=== PATIENT | male | born 1980 | race Hispanic/Latino ===

== ENCOUNTER 2018-05-19 23:08 | Emergency (ER) | payer OTHER ==
[2018-05-20 01:24] LABS: Basophils # (Auto) 0.1 K/mm3 (0.0-0.1); Basophils % (Auto) 0.4 % (0.0-1.8); Eosinophils % (Auto) 0.1 % (0.0-4.3); Hemoglobin 15.4 gm/dl (11.8-15.2); Lymphocytes # (Auto) 0.7 K/mm3 (1.2-5.4); Lymphocytes % (Auto) 5.2 % (13.4-35.0); Mean Corpuscular HGB Conc 33 % (32-34); Mean Corpuscular Hemoglobin 27 pg (28-32); Mean Corpuscular Volume 84 fl (84-94); Platelet Count 271 K/mm3 (140-440); Red Blood Count 5.63 M/mm3 (3.65-5.03); Red Cell Distribution Width 15.1 % (13.2-15.2)
[2018-05-20 02:22] LABS: BUN/Creatinine Ratio 6; Blood Urea Nitrogen 5 mg/dL (9-20)
[2018-05-20 02:23] LABS: Calcium 9.6 mg/dL (8.4-10.2); Hemolysis Index 9
[2018-05-20] MEDS ORDERED: NACL 0.9% 1000 ML 1,000 ML IV ONE (03:08)
[2018-05-20 04:53] VITALS: BP 141/90
--- NOTE | 2018-05-20 04:58 | Emergency Department Report ---
HPI - General Chief Complaint: Dizziness Time Seen by Provider: 05/20/18 03:01 - HPI HPI: 38-year-old male presents to the emergency department via EMS from work after he began having some full body tingling, dizziness and cramping of his muscles. 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 EMS was called and the patient received a liter of IV fluid in route and says that he began feeling much better as soon as he started getting IV fluid resuscitation. Patient denies any past medical history. He denies any tobacco, or illicit drug use. The patient does admit to drinking alcohol the night before and then going into work which is a strenuous job. He does not have a primary care physician. No recent travel or sick contacts at home. He denies any chest pain, shortness of breath, headache, vision change, slurred speech or any other neurological deficits. ED Past Medical Hx - Past Medical History Previous Medical History?: No - Surgical History Past Surgical History?: No - Social History Smoking Status: Never Smoker Substance Use Type: None ED Review of Systems ROS: Stated complaint: DEHYDRATION/CRAMPING/DIZZINESS Other details as noted in HPI Comment: All other systems reviewed and negative Constitutional: denies: chills, fever Eyes: denies: eye pain, eye discharge, vision change ENT: denies: ear pain, throat pain Respiratory: denies: cough, shortness of breath, wheezing Cardiovascular: denies: chest pain, palpitations Gastrointestinal: denies: abdominal pain, nausea, diarrhea Genitourinary: denies: urgency, dysuria Musculoskeletal: myalgia, other (muscle cramping) Skin: denies: rash, lesions Neurological: paresthesias, other (dizziness). denies: headache, numbness Physical Exam - Physical Exam Vital Signs: Vital Signs 05/20/18 05/20/18 05/20/18 00:38 03:06 03:08 Temperature 98.6 F 98.7 F Pulse Rate 103 H 109 H Respiratory 16 18 Rate Blood Pressure 125/77 Blood Pressure 158/75 [Left] O2 Sat by Pulse 100 100 99 Oximetry 05/20/18 05/20/18 05/20/18 03:31 04:00 04:31 Temperature Pulse Rate 104 H 109 H 97 H Respiratory 10 L 12 11 L Rate Blood Pressure 140/93 141/90 141/90 Blood Pressure [Left] O2 Sat by Pulse 100 99 Oximetry Physical Exam: GENERAL: The patient is well-developed well-nourished. HENT: Normocephalic. Atraumatic. Patient has moist mucous membranes. EYES: Extraocular motions are intact. Pupils equal reactive to light bilaterally. NECK: Supple. Trachea is midline. CHEST/LUNGS: Clear to auscultation. There is no respiratory distress noted. HEART/CARDIOVASCULAR: Regular. There is mild tachycardia. There is no murmur. ABDOMEN: Abdomen is soft, nontender. Patient has normal bowel sounds. There is no abdominal distention. SKIN: Skin is warm and dry. NEURO: The patient is awake, alert, and oriented. The patient is cooperative. The patient has no focal neurologic deficits. The patient has normal speech. Cranial nerves II through XII grossly intact. No dysmetria. No pronator drift. MUSCULOSKELETAL: There is no tenderness or deformity. There is no limitation range of motion. There is no evidence of acute injury. ED Course Vital Signs 05/20/18 05/20/18 05/20/18 00:38 03:06 03:08 Temperature 98.6 F 98.7 F Pulse Rate 103 H 109 H Respiratory 16 18 Rate Blood Pressure 125/77 Blood Pressure 158/75 [Left] O2 Sat by Pulse 100 100 99 Oximetry 05/20/18 05/20/18 05/20/18 03:31 04:00 04:31 Temperature Pulse Rate 104 H 109 H 97 H Respiratory 10 L 12 11 L Rate Blood Pressure 140/93 141/90 141/90 Blood Pressure [Left] O2 Sat by Pulse 100 99 Oximetry ED Medical Decision Making - Lab Data Result diagrams: 05/20/18 00:54 05/20/18 00:54 - EKG Data -: EKG Interpreted by N[facility] EKG shows normal: sinus rhythm, axis, intervals, QRS complexes, ST-T waves Rate: tachycardia (112 bpm) - EKG Data When compared to previous EKG there are: previous EKG unavailable Interpretation: other (sinus tachycardia) - Medical Decision Making Patient presented from work after overheating, having some dizziness, body cramping and tingling. After receiving IV fluid in route the patient is a feeling improved. There is no focal, motor or sensory deficits and his cranial nerves are intact. Patient's labs are mostly unremarkable or these do not show any etiology of the patient's symptoms. There is a mild leukocytosis is most likely reactive at 14,000. There are no significant electrolyte abnormalities, and there is no renal insufficiency, glucose abnormalities. EKG does not show any signs of ST elevation LA, ischemia or dysrhythmia. Patient was given another liter of IV fluid resuscitation and upon reevaluation his tachycardia has resolved. The patient says he is feeling "great" and asking for discharge home. He will increase his oral rehydration. He has been instructed to follow up with a primary care physician but to return to the ER with any worsening of his symptoms or any acute distress. - Differential Diagnosis dehydration, electrolyte abnormalities, dysrhythmia Critical Care Time: No Critical care attestation.: If time is entered above; I have spent that time in minutes in the direct care of this critically ill patient, excluding procedure time. ED Disposition Clinical Impression: Dehydration, Tingling, Dizziness Disposition: DC-01 TO HOME OR SELFCARE Is pt being admited?: No Condition: Stable Instructions: Dehydration (ED), Paresthesia (ED), Lightheadedness (ED), Dizziness (ED) Additional Instructions: Increase your oral rehydration. Follow up with a primary care physician in the next few days. Return to the emergency Department with any worsening of your symptoms or any acute distress. Referrals: PRIMARY CAREMD [Primary Care Provider] - 2-3 Days FEDERICO ROBLEDO JR, MD [Staff Physician] - 2-3 Days [facility] [Outside] - 2-3 Days Forms: Work/School Release Form(ED) Time of Disposition: 04:58
== END 2018-05-20 05:09 | disposition home or self-care (01) ==
LOC: ED 23:08
DX: E86.0 Dehydration (principal); R20.2 Paresthesia of skin
CPT/HCPCS: 36415; 80048; 85025; 93005; 93010; 96360; 99283; J7030

== ENCOUNTER 2018-06-11 18:43 | Observation (INO) | payer OTHER ==
[2018-06-11 19:08] LABS: Basophils # (Auto) 0.1 K/mm3 (0.0-0.1); Basophils % (Auto) 0.6 % (0.0-1.8); Eosinophils # (Auto) 0.1 K/mm3 (0.0-0.4); Eosinophils % (Auto) 1.5 % (0.0-4.3); Hematocrit 45.4 % (35.5-45.6); Hemoglobin 15.3 gm/dl (11.8-15.2); Lymphocytes # (Auto) 2.1 K/mm3 (1.2-5.4); Lymphocytes % (Auto) 24.1 % (13.4-35.0); Mean Corpuscular HGB Conc 34 % (32-34); Mean Corpuscular Hemoglobin 28 pg (28-32); Mean Corpuscular Volume 83 fl (84-94); Monocytes # (Auto) 0.6 K/mm3 (0.0-0.8); Platelet Count 274 K/mm3 (140-440); Red Blood Count 5.46 M/mm3 (3.65-5.03); Red Cell Distribution Width 14.4 % (13.2-15.2)
[2018-06-11 19:22] LABS: BUN/Creatinine Ratio 11; Blood Urea Nitrogen 9 mg/dL (9-20); Calcium 9.7 mg/dL (8.4-10.2); Hemolysis Index 7
--- NOTE | 2018-06-11 22:53 | Emergency Department Report ---
ED Palpitations HPI - General Chief Complaint: Arrhythmia/Palpitations Stated Complaint: POSS IRREG HEARTBEAT Time Seen by Provider: 06/11/18 22:52 Source: patient Mode of arrival: Ambulatory Limitations: No Limitations - History of Present Illness Initial Comments: Patient c/o heart palpitations. Complaint: palpitations, irregular heart beat -: Gradual Context: occured during rest Associated Symptoms: shortness of breath - Related Data Allergies Allergy/AdvReac Type Severity Reaction Status Date / Time No Known Allergies Allergy Unverified 05/20/18 00:46 ED Review of Systems ROS: Stated complaint: POSS IRREG HEARTBEAT Other details as noted in HPI Comment: All other systems reviewed and negative Constitutional: denies: chills, fever Eyes: denies: eye pain ENT: denies: ear pain Respiratory: shortness of breath. denies: cough, orthopnea, SOB with exertion Cardiovascular: palpitations. denies: chest pain, orthopnea Endocrine: no symptoms reported Gastrointestinal: denies: abdominal pain, nausea, vomiting, diarrhea Genitourinary: denies: urgency, dysuria Musculoskeletal: denies: back pain Skin: denies: rash, lesions Neurological: denies: headache, weakness, numbness, paresthesias, confusion Psychiatric: denies: anxiety, depression Hematological/Lymphatic: denies: easy bleeding, easy bruising ED Past Medical Hx - Past Medical History Previous Medical History?: No - Surgical History Past Surgical History?: No - Social History Smoking Status: Never Smoker Substance Use Type: Alcohol ED Physical Exam - General Limitations: No Limitations General appearance: alert, in no apparent distress - Head Head exam: Present: atraumatic, normocephalic, normal inspection - Eye Eye exam: Present: normal appearance, PERRL, EOMI Pupils: Present: normal accommodation - ENT ENT exam: Present: normal exam, normal orophraynx, mucous membranes moist - Neck Neck exam: Present: normal inspection, full ROM. Absent: tenderness - Respiratory Respiratory exam: Present: normal lung sounds bilaterally. Absent: respiratory distress, wheezes, rales, rhonchi, stridor - Cardiovascular Cardiovascular Exam: Present: normal rhythm, tachycardia, normal heart sounds - GI/Abdominal GI/Abdominal exam: Present: soft, normal bowel sounds. Absent: distended, tenderness, guarding, rebound, rigid - Extremities Exam Extremities exam: Present: normal inspection, full ROM, normal capillary refill - Back Exam Back exam: Present: normal inspection, full ROM. Absent: tenderness - Neurological Exam Neurological exam: Present: alert, oriented X3, CN II-XII intact - Psychiatric Psychiatric exam: Present: normal affect, normal mood - Skin Skin exam: Present: warm, dry, intact, normal color. Absent: rash ED Course Vital Signs 06/11/18 06/11/18 06/11/18 18:51 22:28 22:31 Temperature 98.9 F Pulse Rate 125 H 107 H 95 H Respiratory 20 13 14 Rate Blood Pressure 157/86 147/77 O2 Sat by Pulse 100 99 Oximetry 06/11/18 06/11/18 06/11/18 23:00 23:03 23:30 Temperature Pulse Rate 106 H 102 H 102 H Respiratory 13 10 L 13 Rate Blood Pressure 133/78 133/78 137/80 O2 Sat by Pulse 100 100 Oximetry 06/11/18 06/12/18 23:34 01:21 Temperature Pulse Rate Respiratory 20 Rate Blood Pressure O2 Sat by Pulse 98 96 Oximetry - Reevaluation(s) Reevaluation #1: 06/12/18 02:08 On re-evaluation patient is still Tachycardic with a HR 124. ED Medical Decision Making - Lab Data Result diagrams: 06/11/18 18:57 06/11/18 18:57 Lab Results 06/11/18 06/11/18 06/11/18 Range/Units 18:57 18:57 21:33 WBC 8.6 (4.5-11.0) K/mm3 RBC 5.46 H (3.65-5.03) M/mm3 Hgb 15.3 H (11.8-15.2) gm/dl Hct 45.4 (35.5-45.6) % MCV 83 L (84-94) fl MCH 28 (28-32) pg MCHC 34 (32-34) % RDW 14.4 (13.2-15.2) % Plt Count 274 (140-440) K/mm3 Lymph % (Auto) 24.1 (13.4-35.0) % [place] % (Auto) 7.0 (0.0-7.3) % Eos % (Auto) 1.5 (0.0-4.3) % Baso % (Auto) 0.6 (0.0-1.8) % Lymph # 2.1 (1.2-5.4) K/mm3 [place] # 0.6 (0.0-0.8) K/mm3 Eos # 0.1 (0.0-0.4) K/mm3 Baso # 0.1 (0.0-0.1) K/mm3 Seg Neutrophils % 66.8 (40.0-70.0) % Seg Neutrophils # 5.7 (1.8-7.7) K/mm3 PT (12.2-14.9) Sec. INR (0.87-1.13) APTT (24.2-36.6) Sec. Sodium 139 (137-145) mmol/L Potassium 4.2 (3.6-5.0) mmol/L Chloride 100.6 (98-107) mmol/L Carbon Dioxide 27 (22-30) mmol/L Anion Gap 16 mmol/L BUN 9 (9-20) mg/dL Creatinine 0.8 (0.8-1.5) mg/dL Estimated GFR > 60 ml/min BUN/Creatinine Ratio 11 % Glucose 111 H (75-100) mg/dL Calcium 9.7 (8.4-10.2) mg/dL Troponin T < 0.010 < 0.010 (0.00-0.029) ng/mL TSH (0.270-4.200) mlU/mL Urine Color (Yellow) Urine Turbidity (Clear) Urine pH (5.0-7.0) Ur Specific [place] (1.003-1.030) Urine Protein (Negative) mg/dL Urine Glucose (UA) (Negative) mg/dL Urine Ketones (Negative) mg/dL Urine Blood (Negative) Urine Nitrite (Negative) Urine Bilirubin (Negative) Urine Urobilinogen (<2.0) mg/dL Ur Leukocyte Esterase (Negative) Urine WBC (Auto) (0.0-6.0) /HPF Urine RBC (Auto) (0.0-6.0) /HPF Urine Opiates Screen Urine Methadone Screen Ur Barbiturates Screen Ur Phencyclidine Scrn Ur Amphetamines Screen U Benzodiazepines Scrn Urine Cocaine Screen U Marijuana (THC) Screen Drugs of Abuse Note 06/11/18 06/11/18 06/11/18 Range/Units 23:05 23:05 23:34 WBC (4.5-11.0) K/mm3 RBC (3.65-5.03) M/mm3 Hgb (11.8-15.2) gm/dl Hct (35.5-45.6) % MCV (84-94) fl MCH (28-32) pg MCHC (32-34) % RDW (13.2-15.2) % Plt Count (140-440) K/mm3 Lymph % (Auto) (13.4-35.0) % [place] % (Auto) (0.0-7.3) % Eos % (Auto) (0.0-4.3) % Baso % (Auto) (0.0-1.8) % Lymph # (1.2-5.4) K/mm3 [place] # (0.0-0.8) K/mm3 Eos # (0.0-0.4) K/mm3 Baso # (0.0-0.1) K/mm3 Seg Neutrophils % (40.0-70.0) % Seg Neutrophils # (1.8-7.7) K/mm3 PT 12.4 (12.2-14.9) Sec. INR 0.88 (0.87-1.13) APTT 28.1 (24.2-36.6) Sec. Sodium (137-145) mmol/L Potassium (3.6-5.0) mmol/L Chloride (98-107) mmol/L Carbon Dioxide (22-30) mmol/L Anion Gap mmol/L BUN (9-20) mg/dL Creatinine (0.8-1.5) mg/dL Estimated GFR ml/min BUN/Creatinine Ratio % Glucose (75-100) mg/dL Calcium (8.4-10.2) mg/dL Troponin T (0.00-0.029) ng/mL TSH 1.340 (0.270-4.200) mlU/mL Urine Color Straw (Yellow) Urine Turbidity Clear (Clear) Urine pH 8.0 H (5.0-7.0) Ur Specific [place] 1.009 (1.003-1.030) Urine Protein <15 mg/dl (Negative) mg/dL Urine Glucose (UA) Neg (Negative) mg/dL Urine Ketones 20 (Negative) mg/dL Urine Blood Neg (Negative) Urine Nitrite Neg (Negative) Urine Bilirubin Neg (Negative) Urine Urobilinogen < 2.0 (<2.0) mg/dL Ur Leukocyte Esterase Neg (Negative) Urine WBC (Auto) 1.0 (0.0-6.0) /HPF Urine RBC (Auto) 1.0 (0.0-6.0) /HPF Urine Opiates Screen Urine Methadone Screen Ur Barbiturates Screen Ur Phencyclidine Scrn Ur Amphetamines Screen U Benzodiazepines Scrn Urine Cocaine Screen U Marijuana (THC) Screen Drugs of Abuse Note 06/11/18 06/12/18 Range/Units 23:34 00:27 WBC (4.5-11.0) K/mm3 RBC (3.65-5.03) M/mm3 Hgb (11.8-15.2) gm/dl Hct (35.5-45.6) % MCV (84-94) fl MCH (28-32) pg MCHC (32-34) % RDW (13.2-15.2) % Plt Count (140-440) K/mm3 Lymph % (Auto) (13.4-35.0) % [place] % (Auto) (0.0-7.3) % Eos % (Auto) (0.0-4.3) % Baso % (Auto) (0.0-1.8) % Lymph # (1.2-5.4) K/mm3 [place] # (0.0-0.8) K/mm3 Eos # (0.0-0.4) K/mm3 Baso # (0.0-0.1) K/mm3 Seg Neutrophils % (40.0-70.0) % Seg Neutrophils # (1.8-7.7) K/mm3 PT (12.2-14.9) Sec. INR (0.87-1.13) APTT (24.2-36.6) Sec. Sodium (137-145) mmol/L Potassium (3.6-5.0) mmol/L Chloride (98-107) mmol/L Carbon Dioxide (22-30) mmol/L Anion Gap mmol/L BUN (9-20) mg/dL Creatinine (0.8-1.5) mg/dL Estimated GFR ml/min BUN/Creatinine Ratio % Glucose (75-100) mg/dL Calcium (8.4-10.2) mg/dL Troponin T < 0.010 (0.00-0.029) ng/mL TSH (0.270-4.200) mlU/mL Urine Color (Yellow) Urine Turbidity (Clear) Urine pH (5.0-7.0) Ur Specific [place] (1.003-1.030) Urine Protein (Negative) mg/dL Urine Glucose (UA) (Negative) mg/dL Urine Ketones (Negative) mg/dL Urine Blood (Negative) Urine Nitrite (Negative) Urine Bilirubin (Negative) Urine Urobilinogen (<2.0) mg/dL Ur Leukocyte Esterase (Negative) Urine WBC (Auto) (0.0-6.0) /HPF Urine RBC (Auto) (0.0-6.0) /HPF Urine Opiates Screen Presumptive negative Urine Methadone Screen Presumptive negative Ur Barbiturates Screen Presumptive negative Ur Phencyclidine Scrn Presumptive negative Ur Amphetamines Screen Presumptive negative U Benzodiazepines Scrn Presumptive negative Urine Cocaine Screen Presumptive negative U Marijuana (THC) Screen Presumptive negative Drugs of Abuse Note Disclamer - EKG Data -: EKG Interpreted by [facility] EKG shows normal: sinus rhythm Rate: tachycardia (117) - EKG Data When compared to previous EKG there are: no significant change 06/12/18 02:03 No STEMI - Radiology Data Radiology results: report reviewed, image reviewed Patients CTA Chest was negative for pulmonary embolism. - Medical Decision Making Patient has been in the emergency room recently with tachycardia. He was discharged home according to him. He returned today with the same problem. Emergency room work up could not determine the reason for the tachycardia. Based on that I will admit the patient to the hospitalist for further evaluation and management. He will need a Cardiology consult. Critical care attestation.: If time is entered above; I have spent that time in minutes in the direct care of this critically ill patient, excluding procedure time. ED Disposition Clinical Impression: Tachycardia, Heart palpitations Disposition: OP ADMIT IP TO THIS HOSP Is pt being admited?: Yes Does the pt Need Aspirin: No Condition: Stable Referrals: PRIMARY CARE, [Primary Care Provider] - 3-5 Days Time of Disposition: 01:30
[2018-06-11] MEDS ORDERED: NACL 0.9% 1000 ML 1,000 ML IV ONE (22:59)
[2018-06-11 23:47] LABS: INR 0.88 (0.87-1.13)
[2018-06-11 23:48] LABS: Partial Thromboplastin Time 28.1 Sec. (24.2-36.6)
[2018-06-11 23:53] LABS: Bilirubin,Urine NEG (Negative); Blood,Urine NEG (Negative); Color,Urine Straw (Yellow); Protein,Urine <15 mg/dL mg/dL (Negative); Urobilinogen,Urine < 2.0 mg/dL (<2.0)
[2018-06-12 00:05] LABS: Amphetamine Screen,Urine PRESUMPTIVE NEGATIVE; Benzodiazepines Screen,Urine PRESUMPTIVE NEGATIVE; Cannabinoid Screen,Urine PRESUMPTIVE NEGATIVE; Cocaine Screen,Urine PRESUMPTIVE NEGATIVE; Methadone Screen,Urine PRESUMPTIVE NEGATIVE; Opiate Screen,Urine PRESUMPTIVE NEGATIVE
--- NOTE | 2018-06-12 00:20 | Cat Scan Report ---
FINAL REPORT EXAM: CT ANGIO CHEST HISTORY: Shortness of breath, Palpitations. TECHNIQUE: A CT angiogram of the chest was obtained following the intravenous injection of 100 cc of Omnipaque 350. Rotational, sagittal, and coronal MIP reconstructions were reviewed. FINDINGS: The lungs are clear. Pleural fluid is not seen. Heart size appears normal. There is no evidence of pericardial effusion. The thoracic aorta is normal in configuration. There is no evidence of dissection. Adenopathy is not seen. There is no evidence of pulmonary embolus. In the upper abdomen the adrenal glands appear normal. The skeletal structures appear well maintained. At the thoracic inlet the thyroid gland appears normal. IMPRESSION: No evidence of pulmonary embolus, aortic dissection, or vascular congestion. No acute process in the chest.
[2018-06-12] MEDS ORDERED: NACL 0.9% 1000 ML 1,000 ML IV ONE (02:03)
--- NOTE | 2018-06-12 02:21 | History and Physical Report ---
History of Present Illness History of present illness: 38-year-old male with no medical problems comes emergency room with complaints of his heart racing that started this morning. Patient has been constant and he denies chest pain, nausea vomiting, shortness of breath or diaphoresis Review of systems Constitutional: no weight loss, chills, fever Ears, eyes, nose, mouth and throat: no nasal congestion, no nasal discharge, no sinus pressure, no vision change, no red eye. Neck: No neck pain or rigidity. Cardiovascular: no chest pain Respiratory: no cough, shortness of breath Gastrointestinal: no abdominal pain hematochezia Genitourinary : no frequency , no hematuria Musculoskeletal: no joint swelling or muscle ache Integumentary: no rash, no pruritis Neurological: no parathesias, no numbness, no focal weakness Endocrine: no cold or heat intolerance, no polyuria or polydipsia Hematologic/Lymphatic: no easy bruising, no easy bleeding, no gland swelling Allergic/Immunologic: no urticaria, no angioedema. PAST MEDICAL HISTORY: None PAST SURGICAL HISTORY: None SOCIAL HISTORY: Drinks 6 beers a day, no drugs, tobacco FAMILY HISTORY: Hypertension Medications and Allergies Allergies Allergy/AdvReac Type Severity Reaction Status Date / Time No Known Allergies Allergy Verified 06/12/18 02:33 Active Meds: Active Medications Sodium Chloride (Nacl 0.9% 1000 Ml) 1,000 mls @ 999 mls/hr IV BOLUS ONE Stop: 06/12/18 03:03 Last Admin: 06/12/18 02:13 Dose: 999 mls/hr Exam - Physical Exam Narrative exam: Gen. appearance: Patient lying in bed, no apparent distress HEENT: Normocephalic, atraumatic, pupils equally round and reactive to light, extraocular movement intact, and no sclericterus,. No JVD or thyromegaly or nodule,neck supple, no carotid bruit ,mucous membranes moist, no exudate or erythema Heart: S1, S2, regular rate and rhythm Lungs: Clear bilaterally, breathing comfortable Abdomen: Positive bowel sounds, non-tender, nondistended, no organomegaly Extremity:no edema cyanosis, clubbing Skin: no rash, dry, warm Neuro: Oriented 3, cranial nerves II-12 intact, speech is fluent, motor and sensory intact - Constitutional Vitals: Temp Pulse Resp BP Pulse Ox 98.9 F 102 H 20 137/80 96 09/27/18 18:51 06/11/18 23:30 06/11/18 23:34 06/11/18 23:30 06/12/18 01:21 Results - Labs CBC & Chem 7: 06/11/18 18:57 06/11/18 18:57 Labs: Abnormal lab results 06/11/18 06/11/18 06/11/18 Range/Units 18:57 18:57 23:34 RBC 5.46 H (3.65-5.03) M/mm3 Hgb 15.3 H (11.8-15.2) gm/dl MCV 83 L (84-94) fl Glucose 111 H (75-100) mg/dL Urine pH 8.0 H (5.0-7.0) - Imaging and Cardiology CT scan - chest: report reviewed Assessment and Plan Assessment Palpitations Plan Admit to medicine Check cardiac enzymes, echo, consult cardiology DVT prophylaxis
[2018-06-12] MEDS ORDERED: TYLENOL PO PRN (04:25)
[2018-06-12] MEDS ORDERED: SODIUM CHLORIDE FLUSH SYRINGE 10 ML IV PRN (04:25)
[2018-06-12] MEDS ORDERED: ZOFRAN IV PRN (04:25)
[2018-06-12] MEDS ORDERED: PERCOCET 5/325 PO PRN (04:25)
[2018-06-12 07:27] LABS: BUN/Creatinine Ratio 9; Blood Urea Nitrogen 6 mg/dL (9-20); Calcium 8.5 mg/dL (8.4-10.2); Hemolysis Index 6
[2018-06-12 07:32] LABS: Creatine Kinase MB 1.4 ng/mL (0.0-4.0)
[2018-06-12 08:05] LABS: Basophils # (Auto) 0.1 K/mm3 (0.0-0.1); Basophils % (Auto) 0.6 % (0.0-1.8); Eosinophils # (Auto) 0.1 K/mm3 (0.0-0.4); Eosinophils % (Auto) 0.7 % (0.0-4.3); Hematocrit 42.7 % (35.5-45.6); Hemoglobin 14.1 gm/dl (11.8-15.2); Lymphocytes # (Auto) 1.4 K/mm3 (1.2-5.4); Lymphocytes % (Auto) 17.3 % (13.4-35.0); Mean Corpuscular HGB Conc 33 % (32-34); Mean Corpuscular Hemoglobin 28 pg (28-32); Mean Corpuscular Volume 84 fl (84-94); Monocytes # (Auto) 0.5 K/mm3 (0.0-0.8); Monocytes % (Auto) 6.5 % (0.0-7.3); Platelet Count 248 K/mm3 (140-440); Red Blood Count 5.08 M/mm3 (3.65-5.03); Red Cell Distribution Width 14.6 % (13.2-15.2)
[2018-06-12] MEDS ORDERED: LOVENOX SUB-Q SCH ×2 (10:00)
[2018-06-12] MEDS ORDERED: SODIUM CHLORIDE FLUSH SYRINGE 10 ML IV SCH (10:00)
--- NOTE | 2018-06-12 10:01 | Consultation ---
History of Present Illness Consult date: 06/12/18 Requesting physician: SCOTT MIRELES Consult reason: tachycardia History of present illness: 38-year-old male with no known significant past medical history. He presented with complaints of chest pain and palpitations for approximately 1 week prior to admission. He states that his symptoms have been occurring intermittently with no clear aggravating or alleviating factors. He describes his chest pain as a mild, nonexertional, nonradiating, midsternal "discomfort" that occurs with the palpitations. He admits to MDMA use on 06/06/2018. Yesterday, he was at work around 5PM when he noted his symptoms begin. His symptoms got progressively worse and thus he decided to seek medical attention. He also admits that he took 2 "energy packets" yesterday prior to the onset of his symptoms. He denies any SOB, n/v, diaphoresis, dizziness or syncope. He does drink alcohol daily - drinks 5-6 beers and 1-2 mixed drinks daily. Past History Past Medical History: No medical history Past Surgical History: No surgical history Social history: alcohol abuse Medications and Allergies Allergies Allergy/AdvReac Type Severity Reaction Status Date / Time No Known Allergies Allergy Verified 06/12/18 02:33 Active Meds: Active Medications Acetaminophen (Tylenol) 650 mg PO Q4H PRN PRN Reason: Pain MILD(1-3)/Fever >100.5/BURKS Enoxaparin Sodium (Lovenox) 40 mg SUB-Q QDAY@1000 SONDRA Ondansetron HCl (Zofran) 4 mg IV Q8H PRN PRN Reason: Nausea And Vomiting Oxycodone/Acetaminophen (Percocet 5/325) 1 tab PO Q6H PRN PRN Reason: Pain, Moderate (4-6) Sodium Chloride (Sodium Chloride Flush Syringe 10 Ml) 10 ml IV BID SONDRA Sodium Chloride (Sodium Chloride Flush Syringe 10 Ml) 10 ml IV PRN PRN PRN Reason: LINE FLUSH Review of Systems Constitutional: no weight loss, no weight gain, no fever, no chills, no sweats Ears, nose, mouth and throat: no ear pain, no nose pain, no sinus pressure, no sinus pain Cardiovascular: chest pain, palpitations, no orthopnea, no rapid/irregular heart beat, no edema, no syncope, no lightheadedness, no shortness of breath, no dyspnea on exertion, no paroxysmal nocturnal dyspnea, no high blood pressure , no leg edema, no decreased exercise tolerance Respiratory: no cough, no shortness of breath, no dyspnea on exertion, no congestion, no wheezing, no pain on inspiration Gastrointestinal: no abdominal pain, no nausea, no vomiting, no diarrhea, no constipation, no change in bowel habits Genitourinary Male: no dysuria, no hematuria, no flank pain, no discharge, no urinary frequency, no urinary hesitancy Musculoskeletal: no neck stiffness, no neck pain Integumentary: no rash, no pruritis, no redness, no sores, no wounds Neurological: no head injury, no paralysis, no weakness, no parathesias, no numbness, no tingling, no seizures, no syncope Psychiatric: no anxiety Endocrine: no cold intolerance, no heat intolerance Hematologic/Lymphatic: no easy bruising, no easy bleeding, no lymphadenopathy Allergic/Immunologic: no urticaria, no wheezing, no persistent infections Physical Examination Vital Signs Temp Pulse Resp BP Pulse Ox 98.9 F 125 H 20 157/86 100 06/11/18 18:51 06/11/18 18:51 06/11/18 18:51 06/11/18 18:51 06/11/18 18:51 General appearance: no acute distress HEENT: Positive: PERRL, Normocephaly, Mucus Membranes Moist Neck: Positive: neck supple, trachea midline Cardiac: Positive: Reg Rate and Rhythm, S1/S2 Lungs: Positive: clear to auscultation Neuro: Positive: Grossly Intact, Cranial Nerve 2-12 Intact Abdomen: Positive: Soft. Negative: Tender Skin: Positive: Clear. Negative: Rash, Wound Musculoskeletal: No Fluid Collection, No Pain, Normal Range of Motion Extremities: Absent: edema Results 06/12/18 06:50 06/12/18 06:50 Cardiac Enzymes 06/12/18 Range/Units 06:50 CK-MB (CK-2) 1.4 (0.0-4.0) ng/mL Coagulation 06/11/18 Range/Units 23:05 PT 12.4 (12.2-14.9) Sec. INR 0.88 (0.87-1.13) APTT 28.1 (24.2-36.6) Sec. CBC 06/11/18 06/12/18 Range/Units 18:57 06:50 WBC 8.6 7.8 (4.5-11.0) K/mm3 RBC 5.46 H 5.08 H (3.65-5.03) M/mm3 Hgb 15.3 H 14.1 (11.8-15.2) gm/dl Hct 45.4 42.7 (35.5-45.6) % Plt Count 274 248 (140-440) K/mm3 Lymph # 2.1 1.4 (1.2-5.4) K/mm3 [place] # 0.6 0.5 (0.0-0.8) K/mm3 Eos # 0.1 0.1 (0.0-0.4) K/mm3 Baso # 0.1 0.1 (0.0-0.1) K/mm3 Comprehensive Metabolic Panel 06/11/18 06/12/18 Range/Units 18:57 06:50 Sodium 139 142 (137-145) mmol/L Potassium 4.2 3.5 L (3.6-5.0) mmol/L Chloride 100.6 105.2 (98-107) mmol/L Carbon Dioxide 27 24 (22-30) mmol/L BUN 9 6 L (9-20) mg/dL Creatinine 0.8 0.7 L (0.8-1.5) mg/dL Glucose 111 H 93 (75-100) mg/dL Calcium 9.7 8.5 (8.4-10.2) mg/dL - Imaging and Cardiology Echo: report reviewed (EF 55-60%, no valvular abnormalities. ) EKG: report reviewed, image reviewed EKG interpretations - Telemetry EKG Rhythm: Sinus Rhythm - EKG Sinus rhythms and dysrhythmias: sinus tachycardia Assessment and Plan Tele reviewed - pt has had one bout of sinus tachycardia with no tachyarrhythmias noted since admission. Echo reviewed - EF 55-60%, no valvular abnormalities. Plan for treadmill stress test this afternoon (pt ate breakfast) to evaluate for ischemia and/or inducible cardiac arrhythmias. The patient has been seen in conjunction with Dr. Langston who agrees with the assessment and plan of care. - Patient Problems (1) Chest pain Current Visit: Yes Status: Acute (2) Heart palpitations Current Visit: Yes Status: Acute (3) ETOHism Current Visit: Yes Status: Chronic (4) Illicit drug use Current Visit: Yes Status: Chronic (5) Caffeine use Current Visit: Yes Status: Acute
[2018-06-12 10:35] LABS: Creatine Kinase MB 1.5 ng/mL (0.0-4.0)
--- NOTE | 2018-06-12 14:58 | Discharge Summary ---
Providers - Providers Date of Admission: 06/12/18 02:21 Attending physician: MALIK SHARPE MD 06/12/18 02:06 Consult to Physician [CONS] Routine Comment: Consulting Provider: ROBERT EATON Physician Instructions: Reason For Exam: Tachycardia Primary care physician: [employer]OR[employer]OCIATE Hospitalization Reason for admission: palpitation caffine induced Condition: Stable Pertinent studies: Stress test negative Hospital course: 38-year-old male with no medical problems comes emergency room with complaints of his heart racing that started this morning. Patient has been constant and he denies chest pain, nausea vomiting, shortness of breath or diaphoresis. Patient was admitted to the floor and cardiology was consulted, did stress test and Echo which were unremarkable. Patient tachycardia and palpitation. patient discharged home with the advice to stop drinking caffeine and energy drinks. Disposition: - TO HOME OR SELFCARE Time spent for discharge: 32 minutes - Discharge Diagnoses (1) Caffeine use Status: Acute (2) Chest pain Status: Acute (3) Heart palpitations Status: Acute (4) Tachycardia Status: Acute Core Measure Documentation - Palliative Care Palliative Care/ Comfort Measures: Not Applicable - Core Measures Any of the following diagnoses?: none Exam - Physical Exam Narrative exam: Not in cardiopulmonary distress. The patient appeared well nourished and normally developed. Vital signs as documented. Head exam is unremarkable. No scleral icterus . Neck is without jugular venous distension, thyromegaly, or carotid bruits. Lungs are clear to auscultation. Cardiac exam reveals regular rate and Rhythm. First and second heart sounds normal. No murmurs, rubs or gallops. Abdominal exam reveals normal bowel sounds, no masses, no organomegaly and no aortic enlargement. Extremities are nonedematous and both femoral and pedal pulses are normal. 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 No focal weakness. - Constitutional Vitals: Temp Pulse Resp BP Pulse Ox 98.0 F 79 20 119/78 99 06/12/18 12:01 06/12/18 13:00 06/12/18 12:01 06/12/18 12:01 06/12/18 12:01 Plan Activity: no restrictions Weight Bearing Status: Full Weight Bearing Diet: other (Avoid caffeine) Additional Instructions: F/u at your PCP PRN Follow up with: JULIAN CHE MD [Primary Care Provider] - 3-5 Days Forms: Work/School Release Form
[2018-06-12 16:38] VITALS: BP 141/85
--- NOTE | 2018-06-13 05:49 | Treadmill Report ---
TREADMILL EXERCISE STRESS TEST REPORT REASON FOR STUDY: Chest pain. STRESS TEST PROTOCOL: The patient completed 9 minutes of a Tony protocol. He attained a peak heart rate of 171 per minute, which is 109% of his age predicted maximum (10.2 METs). No diagnostic ischemic EKG changes. No chest pain. No arrhythmias. The test was terminated due to fatigue. IMPRESSION: Negative stress test. No evidence of stress-induced ischemia. JOB# [id number] AGO/NTS
== END 2018-06-12 17:54 | disposition home or self-care (01) ==
LOC: ED 18:43 → INTOOBSV 06-12 02:21 → 4A 06-12 02:21
PROVIDERS: ADMIT Internal Medicine; ATTEND Internal Medicine
DX: R00.2 Palpitations (principal); R00.0 Tachycardia, unspecified; F10.10 Alcohol abuse, uncomplicated; Z82.49 Family history of ischemic heart disease and other diseases of the circulatory system
CPT/HCPCS: 36415; 71275; 80048; 80307; 81001; 82550; 82553; 84443; 84484; 85025; 85610; 85730; 93005; 93010; 93017; 93306; 96372; 99285; G0378; J1650; J7030; Q9967; 96360; 96361

== ENCOUNTER 2018-10-06 15:54 | Emergency (ER) | payer OTHER ==
[2018-10-06 16:20] VITALS: BP 116/77
--- NOTE | 2018-10-06 17:06 | Emergency Department Report ---
ED Chest Pain HPI - General Chief Complaint: Chest Pain Stated Complaint: CHEST PAIN Time Seen by Provider: 10/06/18 16:49 Source: patient Mode of arrival: Ambulatory Limitations: No Limitations - History of Present Illness Initial Comments: She is a 38-year-old male who comes to the emergency room complaining of chest pain. He states he has a heaviness in his chest. He states that he is afraid he is on a diet. Patient is hyperverbal on exam. He admits to 5 or 6 drinks of liquor per day. Also admits to using mushrooms. He has no HI and no SI. He also endorses shortness of breath. These events occurred today while at work. - Related Data Allergies Allergy/AdvReac Type Severity Reaction Status Date / Time No Known Allergies Allergy Verified 06/12/18 02:33 Heart Score - HEART Score History: Slightly suspicious EKG: Normal Age: < 45 Risk factors: No known risk factors Troponin: < normal limit HEART Score: 0 ED Review of Systems ROS: Stated complaint: CHEST PAIN Other details as noted in HPI Comment: All other systems reviewed and negative Constitutional: denies: chills Eyes: denies: eye pain ENT: denies: ear pain Respiratory: see HPI, shortness of breath. denies: cough Cardiovascular: as per HPI, chest pain. denies: palpitations Endocrine: denies: flushing Gastrointestinal: denies: nausea Genitourinary: denies: urgency Musculoskeletal: denies: back pain Skin: denies: lesions Neurological: denies: headache, numbness Psychiatric: as per HPI, anxiety. denies: depression Hematological/Lymphatic: denies: easy bleeding ED Past Medical Hx - Past Medical History Hx Psychiatric Treatment: Yes (ETOH abuse) Additional medical history: "fast hearbeat", polysubstance abuse - Surgical History Past Surgical History?: No - Social History Smoking Status: Never Smoker Substance Use Type: Alcohol, Other ED Physical Exam - General Limitations: No Limitations General appearance: alert - Head Head exam: Present: atraumatic - Eye Eye exam: Present: normal appearance - ENT ENT exam: Present: mucous membranes moist - Neck Neck exam: Present: normal inspection - Respiratory Respiratory exam: Present: normal lung sounds bilaterally - Cardiovascular Cardiovascular Exam: Present: regular rate - GI/Abdominal GI/Abdominal exam: Present: soft, normal bowel sounds - Rectal Rectal exam: Present: deferred - Extremities Exam Extremities exam: Present: normal inspection - Back Exam Back exam: Present: normal inspection - Neurological Exam Neurological exam: Present: alert, oriented X3, CN II-XII intact, normal gait - Psychiatric Psychiatric exam: Present: agitated, anxious. Absent: normal affect, normal mood, depressed, flat affect, manic, homicidal ideation, suicidal ideation - Skin Skin exam: Present: warm, dry, intact ED Course Vital Signs 10/06/18 16:14 Temperature 98.2 F Pulse Rate 93 H Respiratory 20 Rate Blood Pressure 116/77 O2 Sat by Pulse 100 Oximetry PEBBLES score - Pebbles Score Age > 65: (0) No Aspirin use within the Past 7 Days: (0) No 3 or more CAD Risk Factors: (0) No 2 or more Angina events in past 24 hrs: (0) No Known CAD with more than 50% Stenosis: (0) No Elevated Cardiac Markers: (0) No ST Deviation Greater than 0.5mm: (0) No PEBBLES Score: 0 ED Medical Decision Making - Lab Data Result diagrams: 10/06/18 17:33 10/06/18 17:33 - EKG Data -: EKG Interpreted by Pr EKG shows normal: sinus rhythm Rate: normal - EKG Data When compared to previous EKG there are: no significant change Interpretation: no acute changes - Medical Decision Making labs noted 12 lead noted trop normal last etoh this am discussed substance use with pt. no hi no si does not want help now dc home with family and dc plan of care. VSS. Labs 10/06/18 10/06/18 10/06/18 17:00 17:05 17:33 WBC 6.3 RBC 4.87 Hgb 13.8 Hct 41.3 MCV 85 MCH 28 MCHC 33 RDW 15.3 H Plt Count 297 Sodium Potassium Chloride Carbon Dioxide Anion Gap BUN Creatinine Estimated GFR BUN/Creatinine Ratio Glucose Calcium Total Bilirubin AST ALT Alkaline Phosphatase Troponin T Total Protein Albumin Albumin/Globulin Ratio Urine Color Yellow Urine Turbidity Clear Urine pH 8.0 H Ur Specific [place] 1.008 Urine Protein <15 mg/dl Urine Glucose (UA) Neg Urine Ketones Neg Urine Blood Neg Urine Nitrite Neg Urine Bilirubin Neg Urine Urobilinogen 4.0 Ur Leukocyte Esterase Neg Urine WBC (Auto) 1.0 Urine RBC (Auto) 1.0 Urine Opiates Screen Presumptive negative Urine Methadone Screen Presumptive negative Ur Barbiturates Screen Presumptive negative Ur Phencyclidine Scrn Presumptive negative Ur Amphetamines Screen Presumptive negative U Benzodiazepines Scrn Presumptive negative Urine Cocaine Screen Presumptive negative U Marijuana (THC) Screen Presumptive negative Drugs of Abuse Note Disclamer 10/06/18 17:33 WBC RBC Hgb Hct MCV MCH MCHC RDW Plt Count Sodium 140 Potassium 4.3 Chloride 100.9 Carbon Dioxide 29 Anion Gap 14 BUN 9 Creatinine 0.8 Estimated GFR > 60 BUN/Creatinine Ratio 11 Glucose 110 H Calcium 8.8 Total Bilirubin 0.60 AST 44 H ALT 50 Alkaline Phosphatase 110 Troponin T < 0.010 Total Protein 6.8 Albumin 4.2 Albumin/Globulin Ratio 1.6 Urine Color Urine Turbidity Urine pH Ur Specific [place] Urine Protein Urine Glucose (UA) Urine Ketones Urine Blood Urine Nitrite Urine Bilirubin Urine Urobilinogen Ur Leukocyte Esterase Urine WBC (Auto) Urine RBC (Auto) Urine Opiates Screen Urine Methadone Screen Ur Barbiturates Screen Ur Phencyclidine Scrn Ur Amphetamines Screen U Benzodiazepines Scrn Urine Cocaine Screen U Marijuana (THC) Screen Drugs of Abuse Note Critical care attestation.: If time is entered above; I have spent that time in minutes in the direct care of this critically ill patient, excluding procedure time. ED Disposition Clinical Impression: Non-cardiac chest pain, Illicit drug use, Alcohol abuse Disposition: DC-01 TO HOME OR SELFCARE Is pt being admited?: No Does the pt Need Aspirin: No Condition: Stable Instructions: Abuse of Alcohol (ED), Polysubstance Abuse (ED) Additional Instructions: YOUR LABS ARE NORMAL TODAY I SUSPECT YOUR SYMPTOMS ARE FROM ALCOHOL AND DRUG USE FOLLOW UP WITH SUBSTANCE COUNSELING WE DISCUSSED Referrals: MINDI SAEZ MD [Primary Care Provider] - 3-5 Days Time of Disposition: 18:09
[2018-10-06 17:32] LABS: Amphetamine Screen,Urine PRESUMPTIVE NEGATIVE; Benzodiazepines Screen,Urine PRESUMPTIVE NEGATIVE; Cannabinoid Screen,Urine PRESUMPTIVE NEGATIVE; Cocaine Screen,Urine PRESUMPTIVE NEGATIVE; Methadone Screen,Urine PRESUMPTIVE NEGATIVE; Opiate Screen,Urine PRESUMPTIVE NEGATIVE
[2018-10-06 17:35] LABS: Bilirubin,Urine NEG (Negative); Blood,Urine NEG (Negative); Color,Urine Yellow (Yellow); Protein,Urine <15 mg/dL mg/dL (Negative)
[2018-10-06 17:47] LABS: Hematocrit 41.3 % (35.5-45.6); Hemoglobin 13.8 gm/dl (11.8-15.2); Mean Corpuscular HGB Conc 33 % (32-34); Mean Corpuscular Volume 85 fl (84-94); Platelet Count 297 K/mm3 (140-440); Red Blood Count 4.87 M/mm3 (3.65-5.03); Red Cell Distribution Width 15.3 % (13.2-15.2)
--- NOTE | 2018-10-06 17:54 | XRay Report ---
FINAL REPORT EXAM: XR CHEST ROUTINE 2V HISTORY: CHEST PAIN TECHNIQUE: Two view chest PA and lateral PRIORS: None. FINDINGS: Cardiac and mediastinal contours are unremarkable. No focal pulmonary infiltrate is identified. No pleural fluid collection seen. Pulmonary vasculature is unremarkable. IMPRESSION: Negative two-view chest
[2018-10-06 18:03] LABS: Alanine Aminotransferase 50 units/L (7-56); Albumin 4.2 g/dL (3.9-5); BUN/Creatinine Ratio 11; Blood Urea Nitrogen 9 mg/dL (9-20); Calcium 8.8 mg/dL (8.4-10.2); Hemolysis Index 11
== END 2018-10-06 18:46 | disposition home or self-care (01) ==
LOC: ED 15:54
DX: R07.89 Other chest pain (principal)
CPT/HCPCS: 36415; 71046; 80053; 80307; 81001; 84484; 85027; 93005; 93010

== ENCOUNTER 2018-11-06 16:03 | Emergency (ER) | payer SELFPAY ==
--- NOTE | 2018-11-06 16:18 | Emergency Department Report ---
Chief Complaint: Chest Pain Stated Complaint: CHEST PAIN Time Seen by Provider: 11/06/18 16:13 - HPI History of Present Illness: pcp none co cp; started when he went to work today it comes and goes it is associated with palpitations no sob see EMR pmh anxiety no drugs stopped etoh few weeks ago denies psych hx rx none non adh w med he was given - sounds like propranolol lives w mother works in [employer] abc intact 12 lead noted MSE completed MSE screening note: Focused history and physical exam performed. Due to findings the following was ordered: ED Disposition for MSE Condition: Stable
[2018-11-06 17:24] LABS: Bilirubin,Urine NEG (Negative); Blood,Urine NEG (Negative); Color,Urine Yellow (Yellow); Protein,Urine <15 mg/dL mg/dL (Negative); Urobilinogen,Urine < 2.0 mg/dL (<2.0)
[2018-11-06 17:32] LABS: Basophils % (Auto) 0.6 % (0.0-1.8); Eosinophils # (Auto) 0.1 K/mm3 (0.0-0.4); Eosinophils % (Auto) 1.1 % (0.0-4.3); Hematocrit 44.3 % (35.5-45.6); Hemoglobin 14.9 gm/dl (11.8-15.2); Lymphocytes # (Auto) 1.2 K/mm3 (1.2-5.4); Lymphocytes % (Auto) 15.7 % (13.4-35.0); Mean Corpuscular HGB Conc 34 % (32-34); Mean Corpuscular Volume 82 fl (84-94); Monocytes # (Auto) 0.5 K/mm3 (0.0-0.8); Monocytes % (Auto) 6.9 % (0.0-7.3); Platelet Count 269 K/mm3 (140-440); Red Blood Count 5.43 M/mm3 (3.65-5.03); Red Cell Distribution Width 14.7 % (13.2-15.2)
[2018-11-06 17:41] LABS: Amphetamine Screen,Urine PRESUMPTIVE NEGATIVE; Benzodiazepines Screen,Urine PRESUMPTIVE NEGATIVE; Cannabinoid Screen,Urine PRESUMPTIVE NEGATIVE; Cocaine Screen,Urine PRESUMPTIVE NEGATIVE; Methadone Screen,Urine PRESUMPTIVE NEGATIVE; Opiate Screen,Urine PRESUMPTIVE NEGATIVE
[2018-11-06 18:06] LABS: BUN/Creatinine Ratio 17; Blood Urea Nitrogen 12 mg/dL (9-20); Calcium 9.6 mg/dL (8.4-10.2); Hemolysis Index 20
--- NOTE | 2018-11-06 18:37 | Emergency Department Report ---
ED General Adult HPI - General Chief complaint: Chest Pain Stated complaint: CHEST PAIN Time Seen by Provider: 11/06/18 16:13 Source: patient Mode of arrival: Ambulatory Limitations: No Limitations - History of Present Illness Initial comments: Patient is a 38-year-old male who states he has a squeezing sensation in his chest has been present for the last several weeks to months. Patient is not a very good historian. Patient does have a history of alcohol and polysubstance abuse. The patient states he was at work today and started feeli ng a squeezing sensation and came in to be checked out. Patient denies any nausea vomiting shortness of breath diaphoresis. Patient states it occurs randomly can last from seconds to minutes. Severity scale (0 -10): 4 - Related Data Allergies Allergy/AdvReac Type Severity Reaction Status Date / Time No Known Allergies Allergy Verified 06/12/18 02:33 ED Review of Systems ROS: Stated complaint: CHEST PAIN Other details as noted in HPI Comment: All other systems reviewed and negative ED Past Medical Hx - Past Medical History Previous Medical History?: Yes Hx Psychiatric Treatment: Yes (ETOH abuse) Additional medical history: "fast hearbeat", polysubstance abuse - Surgical History Past Surgical History?: No - Social History Smoking Status: Never Smoker Substance Use Type: Alcohol ED Physical Exam - General Limitations: No Limitations General appearance: alert, in no apparent distress - Head Head exam: Present: atraumatic, normocephalic - Eye Eye exam: Present: normal appearance - ENT ENT exam: Present: mucous membranes moist - Neck Neck exam: Present: normal inspection - Respiratory Respiratory exam: Present: normal lung sounds bilaterally. Absent: respiratory distress, wheezes, rales, rhonchi, chest wall tenderness - Cardiovascular Cardiovascular Exam: Present: regular rate, normal rhythm, normal heart sounds. Absent: systolic murmur, diastolic murmur, rubs, gallop - GI/Abdominal GI/Abdominal exam: Present: soft, normal bowel sounds. Absent: distended, tenderness, guarding - Rectal Rectal exam: Present: deferred - Extremities Exam Extremities exam: Present: normal inspection - Back Exam Back exam: Present: normal inspection - Neurological Exam Neurological exam: Present: alert, oriented X3 - Psychiatric Psychiatric exam: Present: normal affect, normal mood - Skin Skin exam: Present: warm, dry, intact, normal color. Absent: rash ED Course Vital Signs 02/22/19 16:13 Temperature 97.9 F Pulse Rate 101 H Respiratory 19 Rate Blood Pressure 129/89 O2 Sat by Pulse 99 Oximetry ED Medical Decision Making - Lab Data Result diagrams: 11/06/18 17:17 11/06/18 17:17 Labs 11/06/18 11/06/18 11/06/18 16:36 16:36 17:17 WBC 7.4 RBC 5.43 H Hgb 14.9 Hct 44.3 MCV 82 L MCH 28 MCHC 34 RDW 14.7 Plt Count 269 Lymph % (Auto) 15.7 [place] % (Auto) 6.9 Eos % (Auto) 1.1 Baso % (Auto) 0.6 Lymph # 1.2 [place] # 0.5 Eos # 0.1 Baso # 0.0 Seg Neutrophils % 75.7 H Seg Neutrophils # 5.6 Sodium Potassium Chloride Carbon Dioxide Anion Gap BUN Creatinine Estimated GFR BUN/Creatinine Ratio Glucose Calcium Troponin T Urine Color Yellow Urine Turbidity Clear Urine pH 5.0 Ur Specific [place] 1.025 Urine Protein <15 mg/dl Urine Glucose (UA) Neg Urine Ketones Neg Urine Blood Neg Urine Nitrite Neg Urine Bilirubin Neg Urine Urobilinogen < 2.0 Ur Leukocyte Esterase Neg Urine WBC (Auto) 1.0 Urine RBC (Auto) 2.0 Urine Opiates Screen Presumptive negative Urine Methadone Screen Presumptive negative Ur Barbiturates Screen Presumptive negative Ur Phencyclidine Scrn Presumptive negative Ur Amphetamines Screen Presumptive negative U Benzodiazepines Scrn Presumptive negative Urine Cocaine Screen Presumptive negative U Marijuana (THC) Screen Presumptive negative Drugs of Abuse Note Disclamer 11/06/18 17:17 WBC RBC Hgb Hct MCV MCH MCHC RDW Plt Count Lymph % (Auto) [place] % (Auto) Eos % (Auto) Baso % (Auto) Lymph # [place] # Eos # Baso # Seg Neutrophils % Seg Neutrophils # Sodium 142 Potassium 4.5 Chloride 102.8 Carbon Dioxide 28 Anion Gap 16 BUN 12 Creatinine 0.7 L Estimated GFR > 60 BUN/Creatinine Ratio 17 Glucose 91 Calcium 9.6 Troponin T < 0.010 Urine Color Urine Turbidity Urine pH Ur Specific [place] Urine Protein Urine Glucose (UA) Urine Ketones Urine Blood Urine Nitrite Urine Bilirubin Urine Urobilinogen Ur Leukocyte Esterase Urine WBC (Auto) Urine RBC (Auto) Urine Opiates Screen Urine Methadone Screen Ur Barbiturates Screen Ur Phencyclidine Scrn Ur Amphetamines Screen U Benzodiazepines Scrn Urine Cocaine Screen U Marijuana (THC) Screen Drugs of Abuse Note - EKG Data -: EKG Interpreted by Me EKG shows normal: sinus rhythm, axis, intervals, QRS complexes, ST-T waves Rate: normal - EKG Data Interpretation: normal EKG - Radiology Data Chest x-ray shows no acute process - Medical Decision Making Patient's states he's been seen in emergency departments before in the past for the same sensation. Suggested again that the patient follow up with cardiology. Patient's troponin is negative as x-ray is within normal limits EKG shows no acute process. Patient asked for light duty at work stating that he thinks he may just be stressed. Critical care attestation.: If time is entered above; I have spent that time in minutes in the direct care of this critically ill patient, excluding procedure time. ED Disposition Clinical Impression: Atypical chest pain Disposition: DC-01 TO HOME OR SELFCARE Is pt being admited?: No Does the pt Need Aspirin: No Condition: Stable Instructions: Chest Pain (ED) Referrals: RICKY GONZALEZ MD [Staff Physician] - 3-5 Days [place] YARELI BROWN MD [Primary Care Provider] - 3-5 Days Forms: Work/School Release Form(ED) Time of Disposition: 18:37
[2018-11-06 18:50] VITALS: BP 124/72
--- NOTE | 2018-11-06 18:56 | XRay Report ---
FINAL REPORT PROCEDURE: Chest. TECHNIQUE: PA and lateral views. HISTORY: Chest pain. COMPARISON: Chest 10/06/2018. FINDINGS: The heart and mediastinum appear normal. The lungs are clear and well expanded. There are no pleural effusions. The soft tissues are unremarkable. There is a very mild thoracic scoliosis. IMPRESSION: No evidence of acute cardiopulmonary disease.
== END 2018-11-06 18:50 | disposition home or self-care (01) ==
LOC: ED 16:03
DX: R07.89 Other chest pain (principal)
CPT/HCPCS: 36415; 71046; 80048; 80307; 81001; 84484; 85025; 93005; 93010

== ENCOUNTER 2019-03-18 09:08 | Emergency (ER) | payer OTHER ==
[2019-03-18 09:17] VITALS: BP 137/93
[2019-03-18] MEDS ORDERED: ASPIRIN PO ONE (09:17)
--- NOTE | 2019-03-18 09:50 | Emergency Department Report ---
ED Chest Pain HPI - General Chief Complaint: Chest Pain Stated Complaint: CHEST PAIN Time Seen by Provider: 03/18/19 09:31 Source: patient Mode of arrival: Ambulatory Limitations: No Limitations - History of Present Illness Initial Comments: This is a 38-year-old male with a past medical history of GERD and hypertension who presents to the ED complaining of chest pain that has worsened for the past 5-6 months. Patient describes pain as intermittent aching and stabbing pain symptoms in right side and sometimes in her left side. Patient states that she needs sporadic comes and goes intermittently. He requested pain 5 out of 10 in intensity. Patient denies any trauma, injury or fall, fever, shortness of breath Patient states that he has been seen by 2 nutrition assistant has been cleared. MD Complaint: chest pain - Related Data Previous Rx's Medication Instructions Recorded Last Taken Type Naproxen [Naprosyn] 500 mg PO BID #30 tablet 03/18/19 Unknown Rx Allergies Allergy/AdvReac Type Severity Reaction Status Date / Time No Known Allergies Allergy Verified 03/18/19 10:16 Heart Score - HEART Score History: Slightly suspicious EKG: Normal Age: < 45 Risk factors: No known risk factors Troponin: < normal limit HEART Score: 0 ED Review of Systems ROS: Stated complaint: CHEST PAIN Other details as noted in HPI Comment: All other systems reviewed and negative ED Past Medical Hx - Past Medical History Hx Hypertension: Yes Hx GERD: Yes Hx Psychiatric Treatment: Yes (ETOH abuse) Additional medical history: "fast hearbeat", polysubstance abuse - Social History Smoking Status: Never Smoker Substance Use Type: None - Medications Home Medications: Home Medications Medication Instructions Recorded Confirmed Last Taken Type Naproxen [Naprosyn] 500 mg PO BID #30 tablet 03/18/19 Unknown Rx ED Physical Exam - General Limitations: No Limitations General appearance: alert, in no apparent distress - Head Head exam: Present: atraumatic, normocephalic - Eye Eye exam: Present: normal appearance - ENT ENT exam: Present: mucous membranes moist - Neck Neck exam: Present: normal inspection - Respiratory Respiratory exam: Present: normal lung sounds bilaterally. Absent: respiratory distress - Cardiovascular Cardiovascular Exam: Present: regular rate, normal rhythm. Absent: systolic murmur, diastolic murmur, rubs, gallop - GI/Abdominal GI/Abdominal exam: Present: soft, normal bowel sounds - Rectal Rectal exam: Present: deferred - Extremities Exam Extremities exam: Present: normal inspection - Back Exam Back exam: Present: normal inspection - Neurological Exam Neurological exam: Present: alert, oriented X3 - Psychiatric Psychiatric exam: Present: normal affect, normal mood - Skin Skin exam: Present: warm, dry, intact, normal color. Absent: rash ED Course Vital Signs 03/18/19 03/18/19 09:15 12:49 Temperature 98.4 F Pulse Rate 108 H Respiratory 16 18 Rate Blood Pressure 137/93 [Left] O2 Sat by Pulse 99 99 Oximetry AJAY score - Ajay Score Age > 65: (0) No Aspirin use within the Past 7 Days: (0) No 3 or more CAD Risk Factors: (0) No 2 or more Angina events in past 24 hrs: (0) No Known CAD with more than 50% Stenosis: (0) No Elevated Cardiac Markers: (0) No ST Deviation Greater than 0.5mm: (0) No AJAY Score: 0 ED Medical Decision Making - Lab Data Result diagrams: 03/18/19 09:53 03/18/19 09:53 - EKG Data EKG shows normal: sinus rhythm - Radiology Data Radiology results: report reviewed, image reviewed INDICATION / CLINICAL INFORMATION: Chest Pain. COMPARISON: None currently available. FINDINGS: SUPPORT DEVICES: None. HEART / MEDIASTINUM: The heart size and pulmonary vasculature are normal. The aorta is normal in caliber. LUNGS / PLEURA: No significant pulmonary or pleural abnormality. No pneumothorax. ADDITIONAL FINDINGS: No significant additional findings. IMPRESSION: No acute findings. Signer Name: Aquilino Clifford MD Signed: 03/18/2019 9:53 AM Workstation Name: [id number] - Medical Decision Making 38-year-old male presents with atypical chest pain. Patient states that symptoms others been going on for about 6 months and that seemed to nutrition assistant who was referred him to a ripsaw operator. Discussed all findings with the patient and discussed all findings were negative. Discussed the patient follow up with primary care doctor. Discussed with patient follow-up with nutrition assistant as well. Referral was given. Patient states understanding instructions. Also discussed possibility of anxiety with the patient. Patient is in no acute distress or respiratory distress. Critical care attestation.: If time is entered above; I have spent that time in minutes in the direct care of this critically ill patient, excluding procedure time. ED Disposition Clinical Impression: Atypical chest pain Disposition: DC-01 TO HOME OR SELFCARE Is pt being admited?: No Does the pt Need Aspirin: No Condition: Stable Instructions: Chest Pain (ED), Costochondritis (ED), Anxiety (ED) Additional Instructions: Make sure to follow up with the primary care physician as discussed. Take all your medications as you've been prescribed. If you have any worsening symptoms or develop new symptoms please return to ED immediately. Prescriptions: Naproxen [Naprosyn] 500 mg PO BID #30 tablet Referrals: YARELI LATIF MD [Primary Care Provider] - 3-5 Days KENAN BUTT MD [Staff Physician] - 3-5 Days Forms: Work/School Release Form(ED) Time of Disposition: 12:13
--- NOTE | 2019-03-18 09:58 | XRay Report ---
CHEST 1 VIEW 9:30 AM INDICATION / CLINICAL INFORMATION: Chest Pain. COMPARISON: None currently available. FINDINGS: SUPPORT DEVICES: None. HEART / MEDIASTINUM: The heart size and pulmonary vasculature are normal. The aorta is normal in urszula shamika. LUNGS / PLEURA: No significant pulmonary or pleural abnormality. No pneumothorax. ADDITIONAL FINDINGS: No significant additional findings. IMPRESSION: No acute findings. Signer Name: Aquilino Clifford MD Signed: 03/18/2019 9:53 AM Workstation Name: [id number]
[2019-03-18 10:05] LABS: Basophils % (Auto) 0.5 % (0.0-1.8); Eosinophils % (Auto) 0.5 % (0.0-4.3); Hematocrit 43.3 % (35.5-45.6); Hemoglobin 14.8 gm/dl (11.8-15.2); Lymphocytes # (Auto) 1.7 K/mm3 (1.2-5.4); Lymphocytes % (Auto) 18.2 % (13.4-35.0); Mean Corpuscular HGB Conc 34 % (32-34); Mean Corpuscular Volume 81 fl (84-94); Monocytes # (Auto) 0.7 K/mm3 (0.0-0.8); Monocytes % (Auto) 7.1 % (0.0-7.3); Platelet Count 256 K/mm3 (140-440); Red Blood Count 5.35 M/mm3 (3.65-5.03); Red Cell Distribution Width 13.6 % (13.2-15.2)
[2019-03-18 10:25] LABS: BUN/Creatinine Ratio 9; Blood Urea Nitrogen 8 mg/dL (9-20); Hemolysis Index 5
== END 2019-03-18 12:52 | disposition home or self-care (01) ==
LOC: ED 09:08
DX: R07.89 Other chest pain (principal); I10 Essential (primary) hypertension; K21.9 Gastro-esophageal reflux disease without esophagitis
CPT/HCPCS: 36415; 71045; 80048; 84484; 85025; 93005; 93010

== ENCOUNTER 2019-10-28 13:07 | Emergency (ER) | payer SELFPAY ==
[2019-10-28 13:26] VITALS: BP 148/102
--- NOTE | 2019-10-28 14:02 | Emergency Department Report ---
Blank Doc - Documentation Documentation: 39-year-old male that presents with left flank pain with radiation to left upper abdominal area. This initial assessment/diagnostic orders/clinical plan/treatment(s) is/are subject to change based on patients health status, clinical progression and re- assessment by fellow clinical providers in the ED. Further treatment and workup at subsequent clinical providers discretion. Patient/guardian urged not to elope from the ED as their condition may be serious if not clinically assessed and managed. Initial orders include: UA
--- NOTE | 2019-10-28 17:57 | Emergency Department Report ---
ED Abdominal Pain HPI - General Chief Complaint: Abdominal Pain Stated Complaint: BACK/ABD PAIN Time Seen by Provider: 10/28/19 14:00 Source: patient Mode of arrival: Ambulatory Limitations: No Limitations - History of Present Illness Initial Comments: 39-year-old male presents emerged department complaining of a 2 to 3-week history of episodic waxing waning left flank pain that sometimes radiates to his left lower quadrant and a waxing and waning fashion he suspicious of having a urinary issue but reports no diarrhea or constipation. Reports no hematuria no hematemesis no hematochezia. No fever, chills, sweats no chest pain or palpitations no rashes no nausea or vomiting. MD Complaint: flank pain - Related Data Previous Rx's Medication Instructions Recorded Last Taken Type Naproxen [Naprosyn] 500 mg PO BID #30 tablet 03/18/19 Unknown Rx traMADoL [Ultram] 50 mg PO Q6HR PRN #14 tablet 10/28/19 Unknown Rx Allergies Allergy/AdvReac Type Severity Reaction Status Date / Time No Known Allergies Allergy Verified 03/18/19 10:16 ED Review of Systems ROS: Stated complaint: BACK/ABD PAIN Other details as noted in HPI Comment: All other systems reviewed and negative ED Past Medical Hx - Past Medical History Hx Hypertension: Yes Hx GERD: Yes Hx Psychiatric Treatment: Yes (ETOH abuse) Additional medical history: "fast hearbeat", polysubstance abuse - Surgical History Past Surgical History?: No - Social History Smoking Status: Never Smoker Substance Use Type: Alcohol - Medications Home Medications: Home Medications Medication Instructions Recorded Confirmed Last Taken Type Naproxen [Naprosyn] 500 mg PO BID #30 tablet 03/18/19 Unknown Rx traMADoL [Ultram] 50 mg PO Q6HR PRN #14 tablet 10/28/19 Unknown Rx ED Physical Exam - General Limitations: No Limitations General appearance: alert, in no apparent distress - Head Head exam: Present: atraumatic, normocephalic - Eye Eye exam: Present: normal appearance, PERRL, EOMI Pupils: Present: normal accommodation - ENT ENT exam: Present: normal exam, normal orophraynx, mucous membranes moist - Neck Neck exam: Present: normal inspection - Respiratory Respiratory exam: Present: normal lung sounds bilaterally. Absent: respiratory distress - Cardiovascular Cardiovascular Exam: Present: regular rate, normal rhythm. Absent: systolic murmur, diastolic murmur, rubs, gallop - GI/Abdominal GI/Abdominal exam: Present: soft, normal bowel sounds - Rectal Rectal exam: Present: deferred - Extremities Exam Extremities exam: Present: normal inspection - Back Exam Back exam: Present: normal inspection - Neurological Exam Neurological exam: Present: alert, oriented X3 - Psychiatric Psychiatric exam: Present: normal affect, normal mood - Skin Skin exam: Present: warm, dry, intact, normal color. Absent: rash ED Course Vital Signs 10/28/19 10/28/19 13:24 17:36 Temperature 98.6 F Pulse Rate 122 H 88 Respiratory 20 20 Rate Blood Pressure 148/102 O2 Sat by Pulse 96 98 Oximetry ED Medical Decision Making - Medical Decision Making This patient presents with abdominal pain of unclear etiology. Their evaluation has not identified a emergent etiology for the abdominal pain. Specifically, given the very benign exam, normal laboratory studies, and lack of significant risk factors, I have a very low suspicion for appendicitis, ischemic bowel, bowel perforation, or any other life threatening disease. I have discussed with the patient the level of uncertainty with undifferentiated abdominal pain and clearly explained the need to follow-up as noted on the discharge instructions, or return to the Emergency Department immediately if the pain worsens, develops fever, persistent and uncontrollable vomiting, or for any new symptoms or concerns. I discussed with the patient that this presentation today for abdominal pain could represent a significant risk for an acute abdominal process. Although the tests in the ED were essentially normal, there is still a possibility of a process such as appendicitis, diverticulitis, cholecystitis, ulcer, early bowel obstruction, mesenteric ischemia, kidney stone, or even kidney infection which could subsequently cause disability or . The patient understands that they must return within 24 hours for a recheck or see their physician within 24 hours for re-exam due to the possibility of significant surgical or medical process. We will have physician specimen preparation assistant Ara Hughes to follow-up with the CT scan report for definitive disposition Critical care attestation.: If time is entered above; I have spent that time in minutes in the direct care of this critically ill patient, excluding procedure time. ED Disposition Clinical Impression: Hematuria, Acute left flank pain Disposition: - TO HOME OR SELFCARE Condition: Stable Instructions: Abdominal Pain (ED), Acute Hematuria (ED) Prescriptions: traMADoL [Ultram] 50 mg PO Q6HR PRN #14 tablet PRN Reason: Pain Referrals: PRIMARY CAREMD [Primary Care Provider] - 3-5 Days MIGUEL ÁNGEL CONLEY MD [Staff Physician] - 3-5 Days [facility] [Provider Group] - 3-5 Days
[2019-10-28 18:13] LABS: Bilirubin,Urine NEG (Negative); Blood,Urine SM (Negative); Color,Urine Yellow (Yellow); Mucus,Urine FEW /HPF; Protein,Urine <15 mg/dL mg/dL (Negative); Urobilinogen,Urine < 2.0 mg/dL (<2.0)
--- NOTE | 2019-10-28 19:09 | Cat Scan Report ---
CT ABDOMEN AND PELVIS WITHOUT CONTRAST HISTORY: left flank pain radiating to abdomen. COMPARISON: None. TECHNIQUE: CT images of the abdomen and pelvis were obtained without administration of intravenous co ntrast. All CT scans at this location are performed using CT dose reduction for ALARA by means of au tomated exposure control. FINDINGS: Lungs/bones: Lung bases are clear. There are degenerative changes in the spine and pelvis with no ac pala osseous abnormality identified. There is partial ankylosis of the SI joints. Abdomen/pelvis: The liver, gallbladder, spleen, pancreas, adrenals, kidneys, and proximal GI tract a ppear unremarkable. Prostate is unremarkable. Urinary bladder is mostly collapsed. No pelvic free fluid. There are occasi onal colonic diverticula with no acute inflammatory change identified. The appendix and terminal ileu m appear normal. IMPRESSION: 1. No acute abnormality identified. Signer Name: Ronald Fuentes MD Signed: 10/28/2019 7:05 PM Workstation Name: [id number]
== END 2019-10-28 19:05 | disposition home or self-care (01) ==
LOC: ED 13:07
DX: R10.32 Left lower quadrant pain (principal); R31.9 Hematuria, unspecified; K21.9 Gastro-esophageal reflux disease without esophagitis
CPT/HCPCS: 74176; 81001; 87086; 99284

== ENCOUNTER 2019-12-08 21:36 | Emergency (ER) | payer SELFPAY ==
[2019-12-08 21:54] VITALS: BP 150/98
--- NOTE | 2019-12-08 22:13 | Emergency Department Report ---
Blank Doc - Documentation Documentation: 39-year-old male that presents with SOB and cough and subjective fever. This initial assessment/diagnostic orders/clinical plan/treatment(s) is/are subject to change based on patient's health status, clinical progression and re- assessment by fellow clinical providers in the ED. Further treatment and workup at subsequent clinical providers discretion. Patient/guardians urged not to elope from the ED as their condition may be serious if not clinically assessed and managed. Initial orders include: 1- Patient sent to [facility] for further evaluation and treatment 2- CXR
--- NOTE | 2019-12-08 22:56 | XRay Report ---
CHEST 1 VIEW 12/08/2019 9:48 PM INDICATION / CLINICAL INFORMATION: cough. COMPARISON: 03/18/19 FINDINGS: SUPPORT DEVICES: None. HEART / MEDIASTINUM: No significant abnormality. LUNGS / PLEURA: No significant pulmonary or pleural abnormality. No pneumothorax. ADDITIONAL FINDINGS: No significant additional findings. IMPRESSION: 1. No acute findings. No change. Signer Name: Tomy Moncada MD Signed: 12/08/2019 10:52 PM Workstation Name: [id number]
--- NOTE | 2019-12-09 01:18 | Emergency Department Report ---
ED General Adult HPI - General Chief complaint: Upper Respiratory Infection Stated complaint: SHORTNESS OF BREATH,COUTH Time Seen by Provider: 12/08/19 22:12 Source: patient Mode of arrival: Ambulatory Limitations: No Limitations - History of Present Illness Initial comments: 39-year-old male with past medical history of acid reflux disorder, hypertensi on, EtOH abuse, polysubstance abuse presents emerged department complaining of 2 to 4-day history of a waxing and waning dry cough not associated with any fever, hemoptysis, hematemesis, hematochezia, nausea, vomiting, diarrhea, chest pain or palpitations. Presents emergency department - Related Data Previous Rx's Medication Instructions Recorded Last Taken Type Naproxen [Naprosyn] 500 mg PO BID #30 tablet 03/18/19 Unknown Rx traMADoL [Ultram] 50 mg PO Q6HR PRN #14 tablet 10/28/19 Unknown Rx Benzonatate [Tessalon Perles] 100 mg PO Q8HR #20 capsule 12/09/19 Unknown Rx Allergies Allergy/AdvReac Type Severity Reaction Status Date / Time No Known Allergies Allergy Verified 03/18/19 10:16 ED Review of Systems ROS: Stated complaint: SHORTNESS OF BREATH,COUTH Other details as noted in HPI Comment: All other systems reviewed and negative ED Past Medical Hx - Past Medical History Previous Medical History?: Yes Hx Hypertension: Yes Hx GERD: Yes Hx Psychiatric Treatment: Yes (ETOH abuse) Additional medical history: "fast hearbeat", polysubstance abuse - Surgical History Past Surgical History?: No - Social History Smoking Status: Never Smoker Substance Use Type: Alcohol - Medications Home Medications: Home Medications Medication Instructions Recorded Confirmed Last Taken Type Naproxen [Naprosyn] 500 mg PO BID #30 tablet 03/18/19 Unknown Rx traMADoL [Ultram] 50 mg PO Q6HR PRN #14 tablet 10/28/19 Unknown Rx Benzonatate [Tessalon Perles] 100 mg PO Q8HR #20 capsule 12/09/19 Unknown Rx ED Physical Exam - General Limitations: No Limitations General appearance: alert, in no apparent distress - Head Head exam: Present: atraumatic, normocephalic - Eye Eye exam: Present: normal appearance, PERRL, EOMI Pupils: Present: normal accommodation - ENT ENT exam: Present: mucous membranes moist - Neck Neck exam: Present: normal inspection - Respiratory Respiratory exam: Present: normal lung sounds bilaterally. Absent: respiratory distress - Cardiovascular Cardiovascular Exam: Present: regular rate, normal rhythm. Absent: systolic murmur, diastolic murmur, rubs, gallop - GI/Abdominal GI/Abdominal exam: Present: soft, normal bowel sounds - Rectal Rectal exam: Present: deferred - Extremities Exam Extremities exam: Present: normal inspection - Back Exam Back exam: Present: normal inspection - Neurological Exam Neurological exam: Present: alert, oriented X3 - Psychiatric Psychiatric exam: Present: normal affect, normal mood - Skin Skin exam: Present: warm, dry, intact, normal color. Absent: rash ED Course Vital Signs 12/08/19 21:51 Temperature 99 F Pulse Rate 89 Respiratory 18 Rate Blood Pressure 150/98 O2 Sat by Pulse 99 Oximetry ED Medical Decision Making - Radiology Data Radiology results: report reviewed Referring Physician:CHIO TROTTERPatient Name:DANIEL WONGYPatient ID:[id number] of :[id number]:MaleAccession:[id number] Date:[id number] Status:Finalized Findings [facility] [address] [place] [address] XRay Report Signed Patient: DANIEL DÍAZ MR#: [id number] : 1980 Acct:[id number] Age/Sex: 39 / M ADM Date: 12/08/19 Loc: ED Attending Dr: Ordering Physician: CHIO TROTTER NP Date of Service: 12/08/19 Procedure(s): XR chest routine 2V Accession Number(s): [id number] cc: CHIO TROTTER NP Fluoro Time In Minutes: CHEST 1 VIEW 12/08/2019 9:48 PM INDICATION / CLINICAL INFORMATION: cough. COMPARISON: 03/18/19 FINDINGS: SUPPORT DEVICES: None. HEART / MEDIASTINUM: No significant abnormality. LUNGS / PLEURA: No significant pulmonary or pleural abnormality. No pneumothorax. ADDITIONAL FINDINGS: No significant additional findings. IMPRESSION: 1. No acute findings. No change. Signer Name: Tomy Moncada MD Signed: 12/08/2019 10:52 PM Workstation Name: [id number] Transcribed By: DT Dictated By: Lamine Moncada MD Electronically Authenticated By: Lamine Moncada MD Signed Date/Time: 12/08/192251 DD/ 50 TD/TT: - Medical Decision Making This patient presents with acute cough, most consistent with reactive airway disease, hayfever, allergic rhinitis. Differential diagnosis includes viral syndrome. Presentation not consistent with acute bacterial pneumonia, influenza, asthma, transient airway hyperresponsiveness. Presentation not consistent with chronic causes of cough (including GERD, asthma, postnasal discharge, medication side effect, CHF, lung cancer or mass). Plan: Normal CXR, supportive care, reassess Critical care attestation.: If time is entered above; I have spent that time in minutes in the direct care of this critically ill patient, excluding procedure time. ED Disposition Clinical Impression: URI (upper respiratory infection), Chronic cough Disposition: - TO HOME OR SELFCARE Is pt being admited?: No Does the pt Need Aspirin: No Condition: Stable Instructions: Chronic Cough (ED), Cold Symptoms (ED) Prescriptions: Benzonatate [Tessalon Perles] 100 mg PO Q8HR #20 capsule Referrals: [facility] [Provider Group] - 3-5 Days
== END 2019-12-09 01:38 | disposition home or self-care (01) ==
LOC: ED 21:36
DX: J06.9 Acute upper respiratory infection, unspecified (principal); R05 Cough; I10 Essential (primary) hypertension; K21.9 Gastro-esophageal reflux disease without esophagitis
CPT/HCPCS: 71046